=== PATIENT | female | born 1990 | race Hispanic/Latino ===

== ENCOUNTER 2020-01-04 09:25 | Emergency (ER) | payer SELFPAY ==
[~2020-01-04] VITALS: Ht 162.6 cm; Wt 74.8 kg
[2020-01-04] MEDS ORDERED: PRENATAL VITAM1 EAC8 PO (09:45)
[2020-01-04] MEDS ORDERED: FOLIC ACID1 MG PO (09:46)
== END 2020-01-04 13:33 | disposition home or self-care (01) ==
LOC: ED 09:25
DX: O20.0 Threatened abortion (principal); Z67.91 Unspecified blood type, Rh negative; Z3A.01 Less than 8 weeks gestation of pregnancy; Z79.899 Other long term (current) drug therapy
CPT/HCPCS: 76801; 76817; 80053; 84702; 85025; 86900; 86901; 87210; 87491; 87591; 96372; 99284-25; J2790; J7030

== ENCOUNTER 2020-01-06 14:21 | Emergency (ER) | payer SELFPAY ==
[~2020-01-06] VITALS: Ht 162.6 cm; Wt 74.8 kg
[~2020-01-06 14:21] MED LIST: FOLIC ACID1 MG PO; PRENATAL VITAM1 EAC8 PO
--- OUTSIDE RECORDS SUMMARY | 2020-01-06 14:24 | XMS ---
PreManage Notification: TERRA REEVES Security Gold Assayer Events No recent Security Events currently on file CRITERIA MET - [facility] - 2 Visits in 30 Days CARE PROVIDERS CAILIN SOLOMON Nurse Practitioner Current PHONE: Unknown Chirag has no Care Guidelines for this patient. [facility] VISIT COUNT (12 MO.) 2 [facility] TOTAL 2 NOTE: Visits indicate total known visits. ED/UCC VISIT TRACKING (12 MO.) 01/06/2020 14:22 [facility] [place] TYPE: Emergency COMPLAINT: - LIGHT HEADEDNESS, PELVIC PAIN 01/04/2020 09:26 [facility] [place] TYPE: Emergency COMPLAINT: - VAGINAL BLEEDING, APROX 7 WKS INPATIENT VISIT TRACKING (12 MO.) No inpatient visits to display in this time frame [email or web address]
== END 2020-01-06 16:57 | disposition home or self-care (01) ==
LOC: ED 14:21
DX: O03.9 Complete or unspecified spontaneous abortion without complication (principal); Z79.899 Other long term (current) drug therapy
CPT/HCPCS: 84702; 85025; 99284